=== PATIENT | female | born 2000 | race Caucasian/White ===

== ENCOUNTER 2021-07-08 00:11 | Emergency (ER) | payer MEDICAID, SELFPAY ==
[2021-07-08 00:12] VITALS: BP 128/88; PULSE 71; RESP 15; TEMP 36.4; O2SAT 98; BMI 33.7
[2021-07-08 00:15] VITALS: BP 128/88; PULSE 71; RESP 15; TEMP 36.4; O2SAT 98
[2021-07-08 00:29] LABS: Mucous, Urine 0 SEEN /hpf (<or=2+); Red Blood Cells-Urine 0 SEEN /hpf (0-5)
[2021-07-08 00:59] LABS: Color, Urine Yellow (Yellow); Glucose, Dipstick Normal (Normal); Ketone-Dipstick Negative (Negative); Leukocyte Esterase-Dipstick 500 /ul (Negative); Nitrite-Dipstick Negative (Negative); Occult Blood-Urine Negative /ul (Negative); Protein-Dipstick Negative (Negative); Specific Gravity, Urine 1.015 (1.002-1.030); Urine Bilirubin Dipstick Negative (Negative); Urine Clarity Sl. Cloudy (Clear); Urine Urobilinogen Normal (Normal)
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
[2021-07-08 01:02] LABS: Internal QC Validated? YES +Cl - CLEAR BKGD; Pregnancy, Urine Negative Negative
[2021-07-08 01:07] LABS: Amorphous Sediment 2+; Bacteria 1+ /hpf (None Seen); Squamous Epithelial Cells - UA 25-50 SEEN /hpf (5-10); White Blood Cells 25-50 SEEN /hpf (0-5)
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
[2021-07-08 01:39] VITALS: PULSE 67; RESP 16; O2SAT 99
[2021-07-08 03:56] LABS: Chlamydia Trachomatis by PCR Negative (Negative)
[2021-07-08 03:57] LABS: Neisserai gonorrhoeae by PCR Negative (Negative); Probe Check PASS; Sample Adequacy Control PASS; Specimen Processing Control PASS
== END 2021-07-08 01:40 | disposition home or self-care (01) ==
PROVIDERS: Emergency Provider Emergency Medicine; Visit Provider Emergency Medicine
DX: T76.21XA Adult sexual abuse, suspected, initial encounter (principal)
CPT/HCPCS: 81001; 81025; 87086; 87088; 87491; 87591; 99282

== ENCOUNTER → 2021-07-12 | Outpatient (CLI) | payer MEDICAID, SELFPAY ==
[2021-07-12 12:16] LABS: Hematocrit 42.9 % (37-47); Hemoglobin 14.1 g/dL (12.0-15.0); Mean Corp Hgb Conc 32.9 g/dL (32-36); Mean Corpuscular Hgb 27.5 pg (27.0-32.0); Mean Corpuscular Volume 83.6 fL (81-99); Mean Platelet Vol. 9.9 fl (6.2-12.0); Platelet Count 303 K/mm3 (150-450); RBC Distribution Width CV 14.1 % (11.6-14.6); RBC Distribution Width SD 43.4 fl (35.1-43.9); Red Blood Count 5.13 M/mm3 (4.2-5.4); White Blood Count 9.1 K/mm3 (4.4-11.0)
[2021-07-12 12:45] LABS: ALB/GLOB Ratio 0.9 RATIO (0.9-2.4); AST(SGOT) 14 U/L (15-37); Alanine Aminotransfer ALT/SGPT 24 U/L (13-56); Albumin, Serum 3.7 g/dL (3.2-5.0); Alkaline Phosphatase 75 U/L (45-117); Anion Gap 5 (5-15); BUN 11 mg/dL (7-18); BUN/Creat Ratio 15.4 RATIO (10-20); Calcium,Total 8.6 mg/dL (8.5-10.1); Chloride 106 mmol/L (98-107); Creatinine, Serum 0.71 mg/dL (0.55-1.02); EST Glomerular Filtration Rate 108 mL/min (>60); Est Glom Filt Rate - Afr Amer 130 mL/min (>60); Globulin 4.1 g/dL (2.2-4.2); Glucose 113 mg/dL (74-106); Potassium 3.9 mmol/L (3.5-5.1); Protein, Total 7.8 g/dL (6.4-8.2); Sodium Level 139 mmol/L (136-145)
[2021-07-12 12:46] LABS: hCG Titer Quant., Serum < 1 mIU/mL (1-3)
[2021-07-12 13:21] LABS: HIV - WCH Non-Reactive (Nonreactive); Hepatitis B Surface Antigen Non-Reactive (Nonreactive); Hepatitis C Antibody Non-Reactive (Nonreactive); Syphilis Antibodies Non-reactive
== END | disposition home or self-care (01) ==
LOC: LAB 11:44
PROVIDERS: PCP Nurse Practitioner Primary Care; Visit Provider Nurse Practitioner Primary Care
DX: T74.21XA Adult sexual abuse, confirmed, initial encounter (principal)
CPT/HCPCS: 36415; 80053; 84702; 85027; 86703; 86780; 86803; 87340

== ENCOUNTER 2022-07-13 22:55 | Emergency (ER) | payer MEDICAID, SELFPAY ==
[2022-07-13 22:55] VITALS: BP 128/95; PULSE 90; RESP 16; TEMP 36.9; O2SAT 100; BMI 34.4
--- NOTE | 2022-07-13 23:08 | US_ITS ---
INDICATION: Bleeding cramping 9 weeks -- quant pending EXAMINATION: Ultrasound US OB Transvaginal COMPARISON: None. FINDINGS: 41 grayscale ultrasound images of the pelvis obtained transvaginally. In addition dedicated ovarian color Doppler and Doppler waveform interrogation was performed. UTERUS: Uterus measures : 6.9 x 4.5 x 3.8 cm. Endometrial thickness of 0.9 cm. Myometrium is unremarkable. ADNEXA: Flow is documented to bilateral ovaries by color Doppler as well as Doppler waveform. Few scattered bilateral subcentimeter ovarian follicles. No significant free fluid. US/Transvaginal w/Preg US IMPRESSION: No intrauterine is identified. Otherwise unremarkable pelvic ultrasound. Recommend correlation with serial quantitative beta-hCG values as well as short interval follow-up ultrasound to confirm viable intrauterine . Electronically Signed: Reji Courtney MD at 23:56 EDT ,
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
[2022-07-13 23:41] LABS: Anion Gap 8 (5-15); BUN 13 mg/dL (7-18); Calcium,Total 8.9 mg/dL (8.5-10.1); Chloride 104 mmol/L (98-107); Creatinine, Serum 1.08 mg/dL (0.55-1.02); EST Glomerular Filtration Rate 66 mL/min (>60); Est Glom Filt Rate - Afr Amer 80 mL/min (>60); Estimated Creatinine Clearance 72.28 ml/min; Glucose 123 mg/dL (74-106); Potassium 3.1 mmol/L (3.5-5.1); Sodium Level 139 mmol/L (136-145)
[2022-07-13 23:45] LABS: hCG Titer Quant., Serum < 1 mIU/mL (1-3)
[2022-07-13 23:51] LABS: Absolute Lymphocyte Count 4.36 X10^3/uL (0.83-4.51); Absolute Neutrophil Count 5.2 X10^3/uL (2.0-7.7); Basophil# 0.04 X10^3/uL; Basophil% 0.4 % (0-1); Eosinophil# 0.16 X10^3/uL; Eosinophils% 1.5 % (0-5); Hematocrit 40.3 % (37-47); Hemoglobin 13.9 g/dL (12.0-15.0); Lymphocyte # 4.36 X10^3/ul (0.83-4.51); Mean Corp Hgb Conc 34.5 g/dL (32-36); Mean Corpuscular Hgb 27.9 pg (27.0-32.0); Mean Corpuscular Volume 80.8 fL (81-99); Mean Platelet Vol. 10.2 fl (6.2-12.0); Monocyte# 0.84 X10^3/uL; Monocyte% 7.9 % (0-10); NRBC Flagged by Analyzer 0 % (0-5); Neutrophil # 5.21 X10^3/uL (2.7-7.7); Neutrophil % 48.9 % (47-70); Platelet Count 327 K/mm3 (150-450); RBC Distribution Width CV 14.3 % (11.6-14.6); RBC Distribution Width SD 42.1 fl (35.1-43.9); Red Blood Count 4.99 M/mm3 (4.2-5.4); White Blood Count 10.6 K/mm3 (4.4-11.0)
[2022-07-14 00:02] LABS: Mucous, Urine 0 SEEN /hpf (<or=2+)
[2022-07-14 00:18] LABS: Color, Urine Yellow (Yellow); Glucose, Dipstick Normal (Normal); Ketone-Dipstick Negative (Negative); Leukocyte Esterase-Dipstick 25 /ul (Negative); Nitrite-Dipstick Negative (Negative); Occult Blood-Urine 250 /ul (Negative); Protein-Dipstick 30 mg/dl (Negative); Urine Bilirubin Dipstick Negative (Negative); Urine Clarity Clear (Clear); Urine Urobilinogen Normal (Normal)
[2022-07-14 00:25] LABS: Bacteria 1+ /hpf (None Seen); Red Blood Cells-Urine 0-5 SEEN /hpf (0-5); Squamous Epithelial Cells - UA 0-5 SEEN /hpf (5-10); White Blood Cells 5-10 SEEN /hpf (0-5)
[2022-07-14] MEDS: Potassium Chloride Oral Tablet 20 MEQ 40 MEQ PO (00:27)
== END 2022-07-14 00:31 | disposition home or self-care (01) ==
PROVIDERS: Emergency Provider Emergency Medicine; PCP Nurse Practitioner Primary Care; Visit Provider Emergency Medicine
DX: O99.281 Endocrine, nutritional and metabolic diseases complicating pregnancy, first trimester (principal); E87.6 Hypokalemia; Z3A.09 9 weeks gestation of pregnancy; O20.9 Hemorrhage in early pregnancy, unspecified
CPT/HCPCS: 76817; 80048; 81001; 84702; 85025; 86900; 86901; 99284; A4216

== ENCOUNTER 2022-08-11 18:27 | Emergency (ER) | payer MEDICAID, SELFPAY ==
[2022-08-11 18:28] VITALS: BP 133/95; PULSE 98; RESP 14; TEMP 36.6; O2SAT 100; BMI 35.6
--- NOTE | 2022-08-11 21:28 | EX.ED.DYSGE1 ---
HPI History of Present Illness Chief Complaint: General Illness Informant: patient Narrative Narrative: Patient presents with telling me she wants to know if she is . She tells me her and her fianc? are trying to get and have a baby. Her last menstrual cycle was 20 July. But she has had breast fullness and frequent urination for about 2 weeks. She wants to be and feels like she might be. She denies discharge. She denies nausea vomiting. No change in bowel habits. No vaginal bleeding. She states sometimes she gets cramping but she is not sure if this is or maybe she is due for her menstrual cycle. She thinks she might of been once before and had a miscarriage but never carried to term. [facility] Medical History Depression Home Medications NK 08/11/22 [History Last Taken Unknown] Allergy/AdvReac Type Severity Reaction Status Date / Time bupropion [From Wellbutrin] AdvReac Other Verified 08/11/22 18:28 Social History Smoking Status: Never smoker ROS ROS ED ROS Narrative A complete review of systems was performed and is negative except as documented in the history of present illness. Some specific details below. Constitutional: No recent fevers or chills. No malaise. EYE: No visual complaints ENT: No difficulty swallowing. No swelling. No pain. No exudate. CV: No chest pain or palpitations. Respiratory: No dyspnea. No hemoptysis. No difficulty taking breaths. GI: No nausea vomiting diarrhea. : See history of present illness. Musculoskeletal: No recent trauma. No pains. Skin: No rash. Nondiaphoretic. Neuro: No weakness or numbness. Endocrine: No polyuria or polydipsia. EXAM Physical Exam Narrative Exam Narrative: CONSTITUTIONAL: Patient is nontoxic in appearance. The patient looks comfortable. She is drinking from a plastic container and looking at her phone. She looks comfortable and nontoxic. HEENT: No notable trauma. Mucous membranes moist. No indication of pain with swallowing. EYES: No conjunctival injection. No proptosis. CARDIOVASCULAR: Regular rate. Regular rhythm. No notable murmur. No JVD. RESPIRATORY: No respiratory distress. Breathing is unlabored. No wheezes. No rhonchi. No rales. No pain with a deep breath. GASTROINTESTINAL: Not distended. Bowel sounds are normal. No tenderness. No guarding. No rebound. No palpable mass. No bruit. GENITOURINARY: No tenderness over the bladder. No CVA tenderness. MUSCULOSKELETAL: Atraumatic. No peripheral edema. NEUROLOGICAL: Patient is alert and appropriate. No focal deficit noted. SKIN: No noted rashes. No diaphoresis. PSYCHIATRIC: Patient is calm. Mood is appropriate. Const Vital Signs: 08/11/22 18:28 08/11/22 21:44 Temperature 97.9 F Temperature Source Temporal Pulse Rate 98 Respiratory Rate 14 Respiratory Effort Normal Respiratory Pattern Normal Blood Pressure 133/95 H Blood Pressure Mean 107 Pulse Ox 100 Oxygen Delivery Method Room Air MDM MDM MDM Narrative Medical decision making narrative: Patient's urinalysis showed 10-25 white cells but she also had 5-10 squamous epithelial cells. Only rare bacteria. Negative nitrites. She has no symptoms of dysuria. test was negative. Chlamydia and gonorrhea are pending. I am told these will not come back today. Patient has no discharge and no dysuria. Her primary concern was . She is comfortable going. We will hold off on antibiotics as she has no dysuria. If it is positive culture we will give her a call and I told her she could get a call over next few days. She understands this. All questions were answered. We discussed reasons to return. Lab Data Attestation: I reviewed the patient's lab results. Labs: Laboratory Results - last 24 hr 08/11/22 21:45 Urine Color Yellow Urine Clarity Sl. Cloudy Urine pH 7.0 Ur Specific [place] 1.010 Urine Protein Negative Urine Glucose (UA) Normal Urine Ketones Negative Urine Occult Blood 10 H Urine Nitrite Negative Urine Bilirubin Negative Urine Urobilinogen Normal Ur Leukocyte Esterase 500 H Urine RBC 0-5 SEEN Urine WBC 10-25 SEEN Ur Squamous Epith Cells 5-10 SEEN Amorphous Sediment 1+ PHOS Urine Bacteria RARE Urine Mucus 0 SEEN Urine Test Negative Discharge Plan Triage Chief Complaint: General Illness ED Provider: Sean Whitten Dx/Rx/DC Orders Clinical Impression: Concern about unplanned without diagnosis Instructions: Preparing for Prescriptions: No Action NK Primary Care Provider: Kathryn Rubi NP Referrals: Seffens,Kathryn BACTERIOLOGIST PHARMACEUTICAL, BACTERIOLOGIST PHARMACEUTICAL-C [Primary Care Provider] - 3-5 Days if not improving Disposition Disposition: Home, Self Care
[2022-08-11 22:01] LABS: Mucous, Urine 0 SEEN /hpf (<or=2+)
[2022-08-11 22:26] LABS: Color, Urine Yellow (Yellow); Glucose, Dipstick Normal (Normal); Ketone-Dipstick Negative (Negative); Leukocyte Esterase-Dipstick 500 /ul (Negative); Nitrite-Dipstick Negative (Negative); Occult Blood-Urine 10 /ul (Negative); Protein-Dipstick Negative (Negative); Urine Bilirubin Dipstick Negative (Negative); Urine Clarity Sl. Cloudy (Clear); Urine Urobilinogen Normal (Normal)
[2022-08-11 22:29] LABS: Internal QC Validated? YES +Cl - CLEAR BKGD; Pregnancy, Urine Negative Negative
[2022-08-11 22:34] LABS: White Blood Cells 10-25 SEEN /hpf (0-5)
[2022-08-11 22:35] LABS: Amorphous Sediment 1+ PHOS; Bacteria RARE /hpf (None Seen); Red Blood Cells-Urine 0-5 SEEN /hpf (0-5); Squamous Epithelial Cells - UA 5-10 SEEN /hpf (5-10)
== END 2022-08-11 23:17 | disposition home or self-care (01) ==
PROVIDERS: Emergency Provider Emergency Medicine; PCP Nurse Practitioner Primary Care; Visit Provider Emergency Medicine
DX: Z32.02 Encounter for pregnancy test, result negative (principal); R35.0 Frequency of micturition
CPT/HCPCS: 81001; 81025; 87086; 87088; 87491; 87591; 99282

== ENCOUNTER 2022-09-15 12:48 | Emergency (ER) | payer MEDICAID, SELFPAY ==
[2022-09-15 12:49] VITALS: BP 123/78; PULSE 75; RESP 15; TEMP 36.4; O2SAT 98; BMI 35.6
[2022-09-15 13:07] VITALS: TEMP 36.6; BMI 35.4
[2022-09-15 13:13] VITALS: BP 126/82; PULSE 75; RESP 16; O2SAT 98
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
[2022-09-15 13:52] LABS: Mucous, Urine 0 SEEN /hpf (<or=2+)
[2022-09-15 13:57] LABS: Color, Urine Red (Yellow); Glucose, Dipstick Normal (Normal); Ketone-Dipstick Negative (Negative); Leukocyte Esterase-Dipstick 100 /ul (Negative); Nitrite-Dipstick Negative (Negative); Occult Blood-Urine 250 /ul (Negative); Protein-Dipstick 30 mg/dl (Negative); Urine Bilirubin Dipstick Negative (Negative); Urine Clarity Sl. Cloudy (Clear); Urine Urobilinogen Normal (Normal)
[2022-09-15 14:02] LABS: Hematocrit 47.2 % (37-47); Hemoglobin 15.2 g/dL (12.0-15.0)
[2022-09-15 14:17] LABS: Internal QC Validated? YES +Cl - CLEAR BKGD; Pregnancy, Serum, hCG Quali. NEGATIVE Negative
[2022-09-15 14:24] LABS: Bacteria 1+ /hpf (None Seen); Red Blood Cells-Urine 25-50 SEEN /hpf (0-5); Squamous Epithelial Cells - UA 0-5 SEEN /hpf (5-10); White Blood Cells 10-25 SEEN /hpf (0-5)
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
== END 2022-09-15 15:07 | disposition home or self-care (01) ==
PROVIDERS: Emergency Provider Emergency Medicine; PCP Nurse Practitioner Primary Care; Visit Provider Emergency Medicine
DX: O99.891 Other specified diseases and conditions complicating pregnancy (principal); N94.6 Dysmenorrhea, unspecified; R35.0 Frequency of micturition; Z3A.01 Less than 8 weeks gestation of pregnancy
CPT/HCPCS: 81001; 84703; 85014; 85018; 99285; A4216